=== PATIENT | male | born 1955 | race Two or more races ===

== ENCOUNTER 2024-04-27 11:26 | Emergency (ER) | payer MEDICAID, OTHER ==
[~2024-04-27] VITALS: Ht 162.6 cm; Wt 88.5 kg
[2024-04-27 12:11] VITALS: BP 153/63; PULSE 75; RESP 18; TEMP 98.3; O2SAT 96
[2024-04-27] MEDS ORDERED: LIDO5DIS21 TOP (12:44)
[2024-04-27] MEDS ORDERED: IBUP-1455 PO (12:44)
== END 2024-04-27 12:59 | disposition home or self-care (01) ==
LOC: ER 11:30
DX: S22.32XA Fracture of one rib, left side, initial encounter for closed fracture (principal); X50.1XXA Overexertion from prolonged static or awkward postures, initial encounter; Y93.89 Activity, other specified; Y92.89 Other specified places as the place of occurrence of the external cause; Y99.8 Other external cause status
CPT/HCPCS: 71101